=== PATIENT | male | born 1975 | race Caucasian/White ===

== ENCOUNTER 2023-04-26 10:48 | Emergency (ER) | payer BC, SELFPAY ==
--- NOTE | ~2023-04-26 | XR_ITS ---
EXAMINATION: XR abdomen/kub 1V DATE: 04/26/2023 11:41 INDICATION: Butt plug stuck in the anus. TECHNIQUE: A supine view of the abdomen was obtained. COMPARISON: None. FINDINGS: There are no dilated loops of bowel. There is a phlebolith in left pelvis. A 5 mm density o verlying right kidney may be a stone. A foreign body overlies the pelvis. IMPRESSION: 1. Foreign body overlying the pelvis correlating with the patient's butt plug. Reviewed, dictated and finalized at location [facility]. THESIA DIRECTOR
[2023-04-26 11:04] VITALS: BP 155/91; PULSE 105; RESP 16; TEMP 36.4; O2SAT 98
--- NOTE | 2023-04-26 11:31 | ED.SKABFB ---
HPI - Skin/Abscess/Foreign Bdy General Chief complaint: Skin/Abscess/Foreign Body Stated complaint: Object Stuck In Anus Time Seen by Provider: 04/26/23 11:25 Source: patient and RN notes reviewed Mode of arrival: ambulatory Limitations: no limitations History of Present Illness HPI narrative: Patient presents today reporting a foreign body in his rectum. States he put a metal butt plug in his rectum approximately 30 mins prior to arrival and is unable to retrieve it. Related Data Home Medications Medication Instructions Recorded Confirmed albuterol sulfate 90 mcg/actuation See Rx Instructions .Route .COMPLEX 04/26/23 04/26/23 aerosol inhaler budesonide-formoterol HFA 160 2 puff inhalation BID 04/26/23 04/26/23 mcg-4.5 mcg/actuation aerosol inhaler Allergies Allergy/AdvReac Type Severity Reaction Status Date / Time No Known Allergies Allergy Verified 04/26/23 11:31 Review of Systems Review of Systems: CONSTITUTIONAL: Denies body aches, fever, chills, or sweats. EYES: Denies visual changes, redness, or discharge. ENT: Denies rhinorrhea, congestion, sore throat, or otalgia. CARDIOVASCULAR: Denies chest pain, palpitations, or edema. RESPIRATORY: Denies cough or dyspnea. GASTROINTESTINAL: Denies abdominal pain, nausea, vomiting, or diarrhea. +foreign body GENITOURINARY: Denies dysuria or hematuria. SKIN: Denies rash, itching, or wounds. MUSCULOSKELETAL: Denies back pain, joint pain, or myalgia. NEUROLOGIC: Denies headache, numbness, tingling, or weakness. PSYCH: Denies depression or anxiety. PMFSH Comments At time of signature, I have reviewed and agree with nursing past medical, surgical, social and family history unless otherwise noted. Please see nursing chart for further information. There is no relevant family history pertinent to the presenting complaint Exam Narrative: GENERAL: Well-appearing, well-nourished, and in no acute distress. HEAD: Normocephalic, atraumatic. EYES: EOMI. No redness or drainage. Conjunctivae normal. ENT: Mucous membranes pink and moist. NECK: Normal AROM. CHEST: No respiratory distress. ABDOMEN: Metal foreign body palpated with tip index finger, but was unable to remove. Patient tolerated procedure well. Chaperoned by RN L. Cox EXTREMITIES: Normal range of motion. No edema. SKIN: Warm, dry, no rash. Capillary refill normal. Normal skin turgor. NEURO: No focal deficits. Alert and oriented x3. Gait steady. PSYCH: Normal affect. No signs of depression or anxiety. Course Course Level of Care: Express Care Visit Vital Signs Vital signs: Vital Signs Temperature 97.6 F 04/26/23 11:04 Pulse Rate 105 H 04/26/23 11:04 Respiratory Rate 16 04/26/23 11:04 Blood Pressure 155/91 H 04/26/23 11:04 Pulse Oximetry 98 04/26/23 11:04 Oxygen Delivery Room Air 04/26/23 11:04 Temperature 97.6 F 04/26/23 11:04 Pulse Rate 105 H 04/26/23 11:04 Respiratory Rate 16 04/26/23 11:04 Blood Pressure 155/91 H 04/26/23 11:04 Pulse Oximetry 98 04/26/23 11:04 Oxygen Delivery Room Air 04/26/23 11:04 Reviewed Transfer Transfered to: [facility] [place] Transportation: Other (Private vehicle) Transfer rationale: Rectal foreign body Accepting physician: Sury MDM - Skin/Abscess/Foreign Bdy MDM Narrative Medical decision making narrative: X-ray shows foreign body. Attempt was made for removal manually, but foreign body was just palpated with the tip of my finger and was unable to be removed. Patient will be transferred to [facility] for further treatment. Differential Diagnosis Differential diagnosis: Likely other (foreign body) Imaging Data Radiologist's impression: ITS Impressions Abdomen X-Ray 04/26/23 11:54 IMPRESSION: 1. Foreign body overlying the pelvis correlating with the patient's butt plug. Critical Care Time Critical Care Time Critical Care Time: No Discharge Plan Discharge Clinical Impr
== END 2023-04-26 12:16 | disposition short-term general hospital (02) ==
PROVIDERS: Emergency Provider Nurse Practitioner
DX: T18.5XXA Foreign body in anus and rectum, initial encounter (principal); W44.E9XA Other non-magnetic metal objects entering into or through a natural orifice, initial encounter
CPT/HCPCS: 74018; 99202; G0463

== ENCOUNTER 2023-04-26 12:47 | Emergency (ER) | payer BC, SELFPAY ==
--- NOTE | ~2023-04-26 | XR_ITS ---
XR abdomen/kub 1V DATE: 04/26/2023 14:07 INDICATION: Foreign body removal TECHNIQUE: 2 AP views COMPARISON: 04/26/2023 KUB FINDINGS: There is interval removal of radiopaque foreign body overlying the rectum since 04/26/2023. No residual radiopaque foreign body is noted. The bowel gas pattern appears unremarkable. The psoas shadows are intact. No visceromegaly is noted. Probable nonobstructive right renal calcifie d calculus IMPRESSION: Removal of radiopaque foreign body overlying rectum Reviewed, dictated and finalized at [facility]. Reviewed, dictated and finalized at [facility]. BOX COVERER
[2023-04-26 12:59] VITALS: BP 134/83; PULSE 84; RESP 16; TEMP 36.1; O2SAT 98
--- NOTE | 2023-04-26 13:29 | ED.SKABFB ---
HPI - Skin/Abscess/Foreign Bdy General Chief complaint: Skin/Abscess/Foreign Body Stated complaint: FB in rectum Time Seen by Provider: 04/26/23 13:19 History of Present Illness HPI narrative: Patient is a 47-year-old male who presents ER with having a foreign body in his rectum. He had a butt plug and when it went fully inside of him. He is having some lower abdominal pressure. No bleeding. Unable to remove it himself for at the urgent care. Related Data Home Medications Medication Instructions Recorded Confirmed albuterol sulfate 90 mcg/actuation See Rx Instructions .Route .COMPLEX 04/26/23 04/26/23 aerosol inhaler budesonide-formoterol HFA 160 2 puff inhalation BID 04/26/23 04/26/23 mcg-4.5 mcg/actuation aerosol inhaler Allergies Allergy/AdvReac Type Severity Reaction Status Date / Time No Known Allergies Allergy Verified 04/26/23 11:31 Review of Systems Gastrointestinal: Gastrointestinal: Reports abdominal pain, Denies nausea and Denies vomiting Comments: Rectal foreign body Exam Narrative: GENERAL: Well-appearing, well-nourished, and in no acute distress. HEAD: Normocephalic, atraumatic. ABDOMEN: Soft, nontender, nondistended. Rectal: Normal-appearing rectum without hemorrhoids or fissures. Digital rectal exam EXTREMITIES: Normal range of motion. No edema. NEURO: Alert and oriented x3. PSYCH: Normal mood and affect. Course Course Emergency Course: Patient resting comfortably. Normal repeat x-ray. Patient has no new lower abdominal pain. Has had no hemorrhage since the foreign body removal. He is appropriate for discharge. Vital Signs Vital signs: Vital Signs Temperature 97.0 F L 04/26/23 12:59 Pulse Rate 84 04/26/23 12:59 Respiratory Rate 16 04/26/23 12:59 Blood Pressure 134/83 04/26/23 12:59 Pulse Oximetry 98 04/26/23 12:59 Temperature 97.0 F L 04/26/23 12:59 Pulse Rate 86 04/26/23 15:10 Respiratory Rate 16 04/26/23 15:10 Blood Pressure 136/74 04/26/23 15:10 Pulse Oximetry 100 04/26/23 15:10 Procedures Foreign Body Removal Foreign Body #1: Foreign Body Removal Date: 04/26/23 Foreign Body Removal Time: 13:22 Time Out Performed: no Site: rectum Description of foreign body: toy Sedation/Analgesia: none Technique: manual removal Confirmed by:: direct visualization and radiograph Complications: none Post-procedure exam: awake, alert MDM - Skin/Abscess/Foreign Bdy Imaging Data Radiologist's impression: ITS Impressions Abdomen X-Ray 04/26/23 14:13 IMPRESSION: Removal of radiopaque foreign body overlying rectum Discharge Plan Discharge Clinical Impression: Foreign body of rectum Patient Disposition: Home, Self-Care Condition: Stable Additional Instructions: Return to ER if you develop severe lower abdominal pain, fever 100.4? F, or if you have additional concerns. Prescriptions: No Action albuterol sulfate 90 mcg/actuation HFA aerosol inhaler See Rx Instructions .ROUTE .COMPLEX Rx Instructions: Rx budesonide-formoterol 160-4.5 mcg/actuation HFA aerosol inhaler 2 puff INHALATION BID Follow-up/Referrals: PHYSICIAN,RN SURGICAL PCU [Non-Staff] -
--- NOTE | 2023-04-26 13:30 | PC.NURSE ---
anal plug was digitally disimpacted by Dr. Wyatt. pt had scant amount of bright red blood on object. no tearing of the anus visible. pt denies pain
[2023-04-26 15:10] VITALS: BP 136/74; PULSE 86; RESP 16; O2SAT 100
== END 2023-04-26 15:11 | disposition home or self-care (01) ==
PROVIDERS: Emergency Provider Emergency Medicine
DX: T18.5XXA Foreign body in anus and rectum, initial encounter (principal); W44.G9XA Other non-organic objects entering into or through a natural orifice, initial encounter
CPT/HCPCS: 74018; 99282